=== PATIENT | female | born 1990 | race Caucasian/White ===

== ENCOUNTER 2016-09-02 13:31 | Emergency (ER) | payer OTHER ==
[2016-09-02] MEDS ORDERED: IBUPROFEN 800 MG TABLET PO STA (13:54)
[2016-09-02] MEDS ORDERED: IBUPROFEN 800 MG TABLET PO ONE (13:55)
== END 2016-09-02 16:13 | disposition home or self-care (01) ==
DX: N64.4 Mastodynia (principal); R07.1 Chest pain on breathing; Z98.82 Breast implant status
CPT/HCPCS: 71020; 76641; 93005; 93010; 99283; 99284; A9270

== ENCOUNTER 2017-03-30 13:35 | Outpatient (CLI) | payer OTHER | END 2017-03-30 13:36 | disposition home or self-care (01) | LOC: LAB.WCP 13:35 | PROVIDERS: ATTEND Obstetrics & Gynecology | DX: Z85.850 Personal history of malignant neoplasm of thyroid (principal) | CPT/HCPCS: 36415; 84443 ==

== ENCOUNTER 2017-04-02 14:08 | Outpatient (CLI) | payer OTHER | END 2017-04-02 14:09 | disposition home or self-care (01) | LOC: LAB.R 14:08 | PROVIDERS: ATTEND Obstetrics & Gynecology | DX: Z11.3 Encounter for screening for infections with a predominantly sexual mode of transmission (principal) | CPT/HCPCS: 87491; 87591 ==

== ENCOUNTER 2017-04-06 14:08 | Outpatient (CLI) | payer OTHER ==
[2017-04-06 19:28] LABS: BASOPHILS % (AUTO) 0.6 %; EOSINOPHILS # (AUTO) 0.1 10^3/uL (0.0-0.7); EOSINOPHILS % (AUTO) 1.7 %; HCT - HEMATOCRIT 41.3 % (37.0-47.0); HGB - HEMOGLOBIN 13.7 g/dL (12.0-16.0); LYMPHOCYTES # (AUTO) 1.3 10^3/uL (1.5-3.5); LYMPHOCYTES % (AUTO) 20.2 %; MEAN CORPUSCULAR HEMOGLOBIN 31.2 pg (27.0-31.0); MEAN CORPUSCULAR HGB CONC 33.1 g/dL (32.0-36.0); MEAN CORPUSCULAR VOLUME 94.2 fL (81.0-99.0); MEAN PLATELET VOLUME 9.6 fL (7.9-10.8); MONOCYTES # (AUTO) 0.2 10^3/uL (0.0-1.0); MONOCYTES % (AUTO) 3.5 %; NEUTROPHILS # (AUTO) 4.8 10^3/uL (1.5-6.6); RED BLOOD COUNT 4.38 10^6/uL (4.20-5.40); RED CELL DISTRIBUTION WIDTH 12.9 % (12.0-15.0); UNCORRECTED WHITE BLOOD COUNT 6.5 x10^3/uL; WHITE BLOOD COUNT 6.5 x10^3/uL (4.8-10.8)
[2017-04-06 19:47] LABS: BILIRUBIN,URINE NEGATIVE (NEGATIVE); PH,URINE 7.5 PH (5.0-7.5)
[2017-04-06 20:01] LABS: WBC,URINE 0-3 /HPF (0-5)
== END 2017-04-06 14:09 | disposition home or self-care (01) ==
LOC: LAB.WCP 14:08
PROVIDERS: ATTEND Obstetrics & Gynecology
DX: R10.2 Pelvic and perineal pain (principal)
CPT/HCPCS: 36415; 81001; 85025; 85651

== ENCOUNTER 2017-04-06 17:29 | Outpatient (CLI) | payer OTHER ==
--- NOTE | 2017-04-07 17:25 | Ultrasound Report ---
PELVIC ULTRASOUND: 04/06/2017 There are no studies for comparison. INDICATION: Pelvic and perineal pain. TECHNIQUE: Transabdominal and endovaginal ultrasound of the pelvis was performed. FINDINGS: The uterus appears normal in size, contour, and echogenicity. The endometrial stripe rajendra ures 3 mm. There are no masses. There is a small amount of simple-appearing cul-de-sac fluid. MEASUREMENTS: Uterus: 7.7 x 4.1 x 3.4 cm. Volume 56 mL. Right ovary: 3.0 x 2.3 x 1.2 cm. Left ovary: 3.7 x 3.6 x 1.8 cm. IMPRESSION: ESSENTIALLY UNREMARKABLE PELVIC ULTRASOUND. JOB #: [id number] EXT JOB #:[id number]
== END 2017-04-06 17:30 | disposition home or self-care (01) ==
LOC: DI 17:29
PROVIDERS: ATTEND Obstetrics & Gynecology
DX: R10.2 Pelvic and perineal pain (principal)
CPT/HCPCS: 36415; 76830; 76856; 81001; 85025; 85651